=== PATIENT | female | born 2005 | race Caucasian/White ===

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

== ENCOUNTER 2023-01-28 10:47 | Day surgery (SDC) | payer OTHER ==
[~2023-01-28] VITALS: Ht 170.2 cm; Wt 50.1 kg
[2023-01-28] MEDS ORDERED: IBUP200 PO (11:31)
--- NOTE | 2023-01-28 12:56 | NUR ---
01/28/23 1256 MARY JOAQUIN PT MOANING, THRASHING, LOTS OF ANXIETY. 2 PERSON IN PACU
[2023-01-28 13:02] VITALS: BP 125/96
--- NOTE | 2023-01-28 14:03 | NUR ---
01/28/23 1402 MARY JOAQUIN MOM AND YOUNG MALE IN WITH PT. INITALLY, PT WAS HAVING EXTREME ANXIETY LEFT ROOM TO PULL MEDS FOR IV PAIN MEDICATION PT WAS YELLING THAT SHE WAS HAVING PAIN. ALSO PULLED PO MEDS THAT DR. ROPER ORDERED. WHEN I RETURNED TO GIVE MEDICATION, PT WAS SLEEPING. MOM AND I DISCUSSED, ALLOWING HER TO SLEEP A BIT TO SEE IF SHE WOULD FEEL BETTER WHEN SHE WOKE UP. PRIOR TO FALLING ASLEEP, PT WAS AFRAID SHE WAS DYING AND SAID IT FELT LIKE SHE WAS HAVING AN OVER DOSE. SPOKE TO MOM ABOUT GOING OVER DC INSTRUCTIONS WITH HER, MENTIONING THAT I WOULD SEND COPIES OF EVERYTHING. RECEIVED CONFIRMATION WITH PT THAT IT WAS OKAY TO GO OVER INFORMATION WITH HER MOM. PT IN AND OUT OF SLEEP BUT WHEN I CONFIRMED THAT SHE WAS OKAY FOR ME TO GO OVER HER INSTRUCTIONS WITH HER MOM, SHE SHOOK HER HEAD TWICE THAT IT WAS OKAY. I FEEL THAT PT WAS LISTENING TO INSTRUCTIONS I WAS GOING OVER THEM WITH MOM AND TERI FRIEND.
== END 2023-01-28 15:04 | disposition home or self-care (01) ==
LOC: ORSCSDS 10:47
PROVIDERS: Obstetrics & Gynecology
PROC: 0UT74ZZ Resection of Bilateral Fallopian Tubes, Percutaneous Endoscopic Approach (ICD-10-PCS; principal; 2023-01-28 12:00)
DX: Z30.2 Encounter for sterilization (principal); F17.210 Nicotine dependence, cigarettes, uncomplicated
CPT/HCPCS: 84703; 88302; A9270; J2250; J2704; J3010

== ENCOUNTER → 2024-04-13 | Outpatient (CLI) | payer OTHER ==
[~2024-04-13] MED LIST changes: +IBUP200 PO
[2024-04-13 18:37] LABS: BASOPHILS ABSOLUTE AUTO 0.04 K/mm3 (0.00-0.23); BASOPHILS PERCENT AUTO 1 % (0-2); EOSINOPHILS ABSOLUTE AUTO 0.11 K/mm3 (0.00-0.68); EOSINOPHILS PERCENT AUTO 2 % (0-6); Hematocrit 36.6 % (33.0-51.0); Hemoglobin 12.4 g/dL (11.5-16.0); IMMATURE GRAN ABSOLUTE AUTO 0.02 K/mm3 (0.00-0.10); IMMATURE GRAN PERCENT AUTO 0 % (0-1); LYMPHOCYTES ABSOLUTE AUTO 1.69 K/mm3 (0.84-5.20); LYMPHOCYTES PERCENT AUTO 31 % (21-46); MONOCYTES PERCENT AUTO 15 % (4-13); Mean Corpuscular HGB Conc 33.9 g/dL (31.5-36.5); Mean Corpuscular Volume 92 fL (80-100); Mean Platelet Volume 8.9 fL (9.1-12.4); NEUTROPHILS ABSOLUTE AUTO 2.73 K/mm3 (1.96-9.15); NEUTROPHILS PERCENT AUTO 51 % (41-73); Platelet Count 185 K/mm3 (150-400); RDW Coefficient Variation 13.5 % (11.7-14.2); White Blood Cell Count 5.39 K/mm3 (4.00-11.30)
[2024-04-13 18:49] LABS: Albumin, Blood 4.1 g/dL (3.4-5.0); Albumin/Globulin Ratio 1.2 (0.8-1.8); Bilirubin, Total 0.3 mg/dL (0.1-1.0); Calcium, Blood 8.8 mg/dL (8.5-10.1); Creatinine, Blood 0.8 mg/dL (0.40-1.00); Globulin, Blood 3.3 g/dL (2.2-4.0); Potassium, Blood 3.6 mmol/L (3.5-5.5); Total Protein, Blood 7.4 g/dL (6.4-8.2)
== END ==
LOC: LAB 18:33 → LAB SHORT 18:33
PROVIDERS: Emergency Medicine
DX: R10.9 Unspecified abdominal pain (principal); R82.81 Pyuria; N89.8 Other specified noninflammatory disorders of vagina
CPT/HCPCS: 80053; 83690; 85025; 87086

== ENCOUNTER → 2024-04-14 | Outpatient (CLI) | payer OTHER ==
[2024-04-15 09:36] LABS: Bacterial Vaginosis PCR Negative (NEGATIVE); Candida glabrata-krusei, PCR NOT DETECTED (NOT DETECT)
[2024-04-15 10:05] LABS: Candida Group, PCR DETECTED (NOT DETECT)
== END | disposition home or self-care (01) ==
LOC: LAB 18:09 → LAB SHORT 18:09
PROVIDERS: Emergency Medicine
DX: N89.8 Other specified noninflammatory disorders of vagina (principal)
CPT/HCPCS: 81515